=== PATIENT | female | born 1960 | race Caucasian/White ===

== ENCOUNTER → 2017-05-15 | Outpatient (CLI) | payer OTHER | LOC: FIMAGING 13:35 | PROVIDERS: ATTEND Family Medicine | DX: Z12.31 Encounter for screening mammogram for malignant neoplasm of breast (principal) | CPT/HCPCS: G0202 ==

== ENCOUNTER → 2017-05-17 | Outpatient (CLI) | payer OTHER | LOC: FIMAGING 10:28 | PROVIDERS: ATTEND Family Medicine | DX: Z12.39 Encounter for other screening for malignant neoplasm of breast (principal); N63 Unspecified lump in breast ==

== ENCOUNTER → 2018-07-11 | Outpatient (CLI) | payer OTHER | LOC: FIMAGING 09:15 | PROVIDERS: ATTEND Family Medicine | DX: Z12.31 Encounter for screening mammogram for malignant neoplasm of breast (principal) ==

== ENCOUNTER 2018-12-12 18:40 | Emergency (ER) | payer OTHER ==
[2018-12-12 18:56] VITALS: BP 102/61
--- NOTE | 2018-12-12 18:58 | EDPHY ---
H & P Stated Complaint: Slipped on wet surface; injury to L wrist Time Seen by Provider: 12/12/18 18:58 HPI/ROS: HPI CHIEF COMPLAINT: Left wrist discomfort. Slip and fall HISTORY OF PRESENT ILLNESS: 58-year-old female, otherwise healthy does have a history of GERD, presents emergency room with left wrist pain. Specifically complains of distal left radius pain. Patient was going out her back deck, and slipped and fell on her outstretched left hand. She now has distal left radius pain. She is neurovascular intact good distal pulse, good cap refill, good nurse specialist strength. Full range of motion but with range of motion she has discomfort. Past Medical History: GERD Past Surgical History: Denies Social History: denies drugs alcohol tobacco. Family History: Noncontributory ROS REVIEW OF SYSTEMS: 10 Systems were reviewed and negative with the exception of the elements mentioned in the history of present illness. Exam Constitutional triage nursing summary reviewed, vital signs reviewed, awake/ alert. Eyes normal conjunctivae and sclera, EOMI, PERRLA. HENT normal inspection, atraumatic, moist mucus membranes, no epistaxis, neck supple/ no meningismus, no raccoon eyes. Respiratory clear to auscultation bilaterally, normal breath sounds, no respiratory distress, no wheezing. Cardiovascular rate normal, regular rhythm, no murmur, no edema, distal pulses normal. Gastrointestinal soft, non-tender, no rebound, no guarding, normal bowel sounds, no distension, no pulsatile mass. Genitourinary no CVA tenderness. Musculoskeletal left wrist: Neurovascular intact good distal pulse, good cap refill, sensation intact, mild swelling noted over the distal radius. With range of motion but discomfort. No compartment syndrome. Sensation intact. no midline vertebral tenderness, full range of motion, no calf swelling, no tenderness of extremities, no meningismus, good pulses, neurovascularly intact. Skin pink, warm, & dry, no rash, skin atraumatic. Neurologic awake, alert and oriented x 3, AAOx3, moves all 4 extremities equally, motor intact, sensory intact, CN II-XII intact, normal cerebellar, normal vision, normal speech. Psychiatric normal mood/affect. Heme/Lymph/Immune no lymphadenopathy. Differential Diagnosis: Includes but is not limited to in a particular order distal radius fracture, wrist contusion, wrist sprain, scaphoid fracture. Medical Decision Making: X-ray of the left wrist. Ice pack. Patient took 3 ibuprofen prior to arrival. Declined any further pain medicine at this time. Plan for this patient x-ray left wrist. Most likely splint and will need orthopedic follow-up. Re-evaluation: X-ray of the left wrist reviewed by myself. This shows a distal radius fracture. No significant displacement. No significant angulation. Patient be placed in a sugar-tong splint and sling provided. Patient need to follow up with Orthopedics Recommend ice, elevation, anti-inflammatory pain medicine sling and splint for support. Additionally return precautions discussed with the patient she understands return emergency room she develops worsening pain questions or concerns. Splint placed. Appropriate. Neurovascular intact after splint placement. Comfortable in the splint. Good cap refill, sensation intact. No compartment syndrome. Source: Patient - Personal History Current Tetanus Diphtheria and Acellular Pertussis (TDAP): Yes Tetanus Vaccine Date: <10YRS - Medical/Surgical History Other PMH: GERD - Social History Smoking Status: Former smoker Constitutional: Initial Vital Signs Temperature (C) 36.7 C 12/12/18 18:45 Heart Rate 87 12/12/18 18:45 Respiratory Rate 18 12/12/18 18:45 Blood Pressure 102/61 12/12/18 18:45 O2 Sat (%) 97 12/12/18 18:45 O2 Delivery Mode Room Air Allergies/Adverse Reactions: paroxetine HCl [From Paxil] Allergy (Verified 12/12/18 18:51) Penicillins Allergy (Verified 12/12/18 18:51) Home Medications: Medication Instructions Recorded ESCITALOPRAM OXALATE [Lexapro] 10 mg PO DAILY 09/04/12 ESTRADIOL [Vagifem] 0.5 mg PO DAILY 09/04/12 Ranitidine HCl [Zantac 75] 75 mg PO 12/12/18 Departure - Departure Disposition: Home, Routine, Self-Care Clinical Impression: Wrist fracture Qualifiers: Encounter type: initial encounter Fracture type: closed Laterality: left Qualified Code(s): S62.102A - Fracture of unspecified carpal bone, left wrist, initial encounter for closed fracture Condition: Good Instructions: Wrist Fracture in Adults (ED) Additional Instructions: 1. Ice 2. Elevate 3. Recommend anti-inflammatory pain medicine like Tylenol and/or Motrin for pain control 4. Stay in your splint for comfort. Do not get wet. 5. Follow up with Orthopedics. Referrals: Kimberley De Santiago MD [Primary Care Provider] - As per Instructions Rajesh Eric MD [Medical Doctor] - As per Instructions
== END 2018-12-12 20:38 | disposition home or self-care (01) ==
PROC: 2W3DX1Z Immobilization of Left Lower Arm using Splint (ICD-10-PCS; principal; 2018-12-12)
DX: S52.502A Unspecified fracture of the lower end of left radius, initial encounter for closed fracture (principal); W01.0XXA Fall on same level from slipping, tripping and stumbling without subsequent striking against object, initial encounter; Y92.9 Unspecified place or not applicable; Y93.9 Activity, unspecified; Y99.9 Unspecified external cause status
CPT/HCPCS: A4565